=== PATIENT | female | born 1970 | race African-American/Black ===

== ENCOUNTER 2020-03-16 08:06 | Emergency (ER) | payer OTHER ==
[~2020-03-16] VITALS: Ht 175.3 cm; Wt 104.3 kg
[2020-03-16] MEDS ORDERED: PRINIVIL10 MG PO ×2 (08:38→11:55)
[2020-03-16] MEDS ORDERED: LOPRESSOR50 MG PO ×2 (08:38→11:55)
--- NOTE | 2020-03-16 09:17 | EKG ---
[facility] [place] [address] ELECTROCARDIOGRAM REPORT Name: ADRIANO MAZARIEGOS Room #: [facility]#: [id number] Admission: 03/16/20 Attend Phys: Discharge: Date of : 72 Report #: [id number] THIS REPORT FOR: cc: FAM - Family physician unknown FAM - Family physician unknown Rikki Keith MD [facility] ~ THIS REPORT FOR: //name// [facility] ED Test Date: 2020-03-16 Test Time: 09:02:19 Pat Name: ADRIANO MAZARIEGOS Department: Room: Gender: F Head Of Product: : 1970 Requested By: Jani Villavicencio Order Number: [id number] MD: Rikki Keith Measurements Intervals [place] Rate: 97 P: 64 LA: 154 QRS: 52 QRSD: 91 T: 50 QT: 366 QTc: 465 Interpretive Statements Sinus rhythm Normal tracing No previous ECG available for comparison Electronically Signed On 03-16-2020 9:16:49 CDT by Rikki Keith [email or web address] <ELECTRONICALLY SIGNED> By: Rikki Keith MD, FAC 03/16/20 0916 1 09 Rikki Keith MD, FACC /EPI
[2020-03-16 10:23] LABS: BASOPHILS 0.9 % (0.0-2.0); EOSINOPHILS 3.4 % (0.0-3.0); HEMATOCRIT 35.5 % (37.0-47.0); HEMOGLOBIN 11.7 gm/dL (12.0-15.0); LYMPHOCYTES 23.8 % (24.0-44.0); MCH 29.4 pg (26.0-34.0); MONOCYTES 10.7 % (1.0-8.0); PLATELET COUNT 334 thou/uL (150-400); POLYS 61.2 % (36.0-66.0); RBC 3.98 mil/uL (4.20-5.00); RDW 16.8 % (10.5-14.5); WBC 4.8 thou/uL (4.0-11.0)
[2020-03-16 10:25] LABS: ANION GAP 7 mmol/L (7-16); BUN 13 mg/dL (7-18); CALCIUM 9.1 mg/dL (8.5-10.1); CHLORIDE 102 mmol/L (98-107); CO2 28 mmol/L (21-32); CREATININE 1.4 mg/dL (0.6-1.0); GLUCOSE 85 mg/dL (74-106); POTASSIUM 3.5 mmol/L (3.5-5.1); SODIUM 137 mmol/L (136-145)
[2020-03-16 10:34] LABS: TROPONIN-I <0.06 ng/mL (<0.06)
[2020-03-16 11:39] VITALS: BP 192/110
== END 2020-03-16 11:40 | disposition home or self-care (01) ==
LOC: ER 08:06
PROVIDERS: Emergency Medicine
DX: R06.00 Dyspnea, unspecified (principal); Z20.828 Contact with and (suspected) exposure to other viral communicable diseases; H57.89 Other specified disorders of eye and adnexa; R60.0 Localized edema; R06.2 Wheezing; R05 Cough; R07.9 Chest pain, unspecified; Z86.73 Personal history of transient ischemic attack (TIA), and cerebral infarction without residual deficits; Z79.899 Other long term (current) drug therapy

== ENCOUNTER 2020-08-02 15:53 | Inpatient (IN) | payer OTHER ==
[~2020-08-02] VITALS: Ht 172.7 cm; Wt 121.6 kg
[~2020-08-02 15:53] MED LIST: LOPRESSOR50 MG PO; PRINIVIL10 MG PO
[2020-08-02 19:08] LABS: URINE BILIRUBIN NEGATIVE (Negative); URINE BLOOD 2+ (Negative); URINE CLARITY CLEAR; URINE COLOR YELLOW; URINE GLUCOSE-RANDOM* NEGATIVE (Negative); URINE KETONES NEGATIVE (Negative); URINE LEUKOCYTES-REFLEX NEGATIVE (Negative); URINE NITRITE-REFLEX NEGATIVE (Negative); URINE PROTEIN (DIPSTICK) TRACE (Negative); URINE SPECIFIC GRAVITY 1.015 (1.005-1.035); URINE UROBILINOGEN 0.2 E.U./dl (0.2-1.0)
[2020-08-02 19:11] LABS: CALCIUM 9.3 mg/dL (8.5-10.1); CREATININE 1.4 mg/dL (0.6-1.0)
[2020-08-02 19:12] LABS: POTASSIUM 4.4 mmol/L (3.5-5.1)
[2020-08-02 19:19] LABS: URINE RBC 3-10 Few /HPF (0-2)
[2020-08-02 19:20] LABS: BACTERIA-REFLEX None Seen /HPF (None Seen); CASTS None Seen /LPF (None Seen); CRYSTALS None Seen /LPF (None Seen); SQUAMOUS 0-3 Few /LPF (0-3); URINE WBC-REFLEX None Seen /HPF (0-5)
[2020-08-02 19:20] LABS: MAGNESIUM 1.9 mg/dL (1.8-2.4); TROPONIN-I 0.09 ng/mL (<0.06)
[2020-08-02 20:03] LABS: HEMATOCRIT 40.9 % (37.0-47.0); HEMOGLOBIN 13.1 gm/dL (12.0-15.0); MCH 28.7 pg (26.0-34.0); MCV 89.6 fL (80.0-100.0); RBC 4.57 mil/uL (4.20-5.00); RDW 17.3 % (10.5-14.5); WBC 6.2 thou/uL (4.0-11.0)
[2020-08-02 22:21] VITALS: BP 207/125
[2020-08-02 22:52] VITALS: BP 198/97
[2020-08-02 23:00] VITALS: BP 175/105
[2020-08-03] VITALS (12 sets, daily range): BP systolic 138–169; BP diastolic 70–101
[2020-08-03 04:05] LABS: HEMATOCRIT 38.4 % (37.0-47.0); HEMOGLOBIN 12.6 gm/dL (12.0-15.0); MCH 29.3 pg (26.0-34.0); MCHC 32.9 g/dL (28.0-37.0); MCV 89.3 fL (80.0-100.0); RBC 4.3 mil/uL (4.20-5.00); RDW 17.4 % (10.5-14.5); WBC 7.2 thou/uL (4.0-11.0)
[2020-08-03 04:21] LABS: ANION GAP 13 mmol/L (7-16); BUN 16 mg/dL (7-18); CALCIUM 9.4 mg/dL (8.5-10.1); CHLORIDE 102 mmol/L (98-107); CHOLESTEROL 236 mg/dL (<200); CO2 24 mmol/L (21-32); CREATININE 1.5 mg/dL (0.6-1.0); GLUCOSE 115 mg/dL (74-106); HDL CHOLESTEROL 74 mg/dL (>40); LDL CHOLESTEROL 150 mg/dL (<100); MAGNESIUM 1.9 mg/dL (1.8-2.4); SODIUM 139 mmol/L (136-145); TC:HDL 3.2 Ratio (Not establshd); TRIGLYCERIDE 64 mg/dL (<150); TROPONIN-I 0.06 ng/mL (<0.06); VLDL 13 mg/dL (<40)
[2020-08-03 04:22] LABS: POTASSIUM 3.2 mmol/L (3.5-5.1); SERUM ASSESSMENT Clear
--- NOTE | 2020-08-03 07:36 | EKG ---
[facility] [place] [address] ELECTROCARDIOGRAM REPORT Name: ADRIANO MAZARIEGOS Room #: 208-P ADM IN M.R.#: [id number] Admission: 08/02/20 Attend Phys: Eliazar Shelton MD Discharge: Date of : 72 Report #: [id number] THIS REPORT FOR: cc: FAM - Family physician unknown FAM - Family physician unknown Fernie Houston MD [facility] ~ THIS REPORT FOR: //name// [facility] ED Test Date: 2020-08-02 Test Time: 18:34:23 Pat Name: ADRIANO MAZARIEGOS Department: Room: 208 Gender: F Park Recreation Manager: YUMIKO : 1970 Requested By: Harmeet Walter Order Number: [id number] MD: Fernie Houston Measurements Intervals [place] Rate: 93 P: 51 FL: 164 QRS: 35 QRSD: 92 T: 34 QT: 382 QTc: 476 Interpretive Statements Sinus rhythm Left atrial enlargement Left ventricular hypertrophy Compared to ECG 03/16/2020 09:02:19 Atrial abnormality now present Left ventricular hypertrophy now present Electronically Signed On 08-03-2020 7:35:59 WREATH INSPECTOR by Fernie Houston [email or web address] <ELECTRONICALLY SIGNED> By: Fernie Houston MD, FACC 08/03/20 0735 1834 183 Fernie Houston MD, [facility] /EPI
--- NOTE | 2020-08-03 10:21 | 2DMMODE ---
[facility] [place] [address] 2 D/M-MODE ECHOCARDIOGRAM Name: ADRIANO MAZARIEGOS Room #: 208-P ADM IN M.R.#: [id number] Admission: 08/02/20 Attend Phys: Eliazar Shelton MD Discharge: Date of : 72 Report #: [id number] THIS REPORT FOR: cc: FAM - Family physician unknown FAM - Family physician unknown Rikki Keith MD [facility] ~ APPROVED REPORT Study performed: 08/03/2020 08:58:12 EXAM: Comprehensive 2D, Doppler, and color-flow Echocardiogram Patient Location: Bedside Room #: 208 Status: routine BSA: 2.13 HR: 105 bpm BP: 149/88 mmHg Rhythm: NSR/tachy Other Information Study Quality: Adequate Technically limited study due to uncooperative patient. Indications HTN. Elevated troponin & elevated BNP. Hx: CVA, HTN 2D Dimensions RVDd: 37.79 mm IVSd: 9.68 (7-11mm) LVOT Diam: 22.45 (18-24mm) LVDd: 53.93 mm PWd: 9.65 (7-11mm) Ascending Ao: 31.79 (22-36mm) LVDs: 32.72 (25-40mm) Aortic Root: 31.20 mm Volumes Left Atrial Volume (Systole) Single Plane 4CH: 63.97 mL Single Plane 2CH: 74.24 mL LA ESV Index: 35.00 mL/m2 Aortic Valve AoV Peak Dennis.: 2.12 m/s AO Peak Gr.: 16.17 mmHg LVOT Max P.84 mmHg [facility] [address] [place] [address] 2 D/M-MODE ECHOCARDIOGRAM Name: ADRIANO MAZARIEGOS Room #: 208-P [facility]#: [id number] Admission: 08/02/20 Attend Phys: Eliazar Shelton MD Discharge: Date of : 72 Report #: [id number] Mean Gr.: 10.12 mmHg AO V2 Mean: 1.48 m/s LVOT Max V: 1.79 m/s AO V2 VTI: 30.32 cm SUNSHINE Vmax: 3.35 cm2 Mitral Valve E/A Ratio: 0.9 MV Decel. Time: 101.04 ms MV E Max Dennis.: 0.86 m/s MV A Dennis.: 0.96 m/s MV PHT: 29.30 ms IVRT: 96.89 ms Pulmonary Valve PV Peak Dennis.: 1.28 m/s PV Peak Gr.: 6.56 mmHg Pulmonary Vein P Vein S: 0.63 m/s P Vein A: 0.19 m/s P Vein D: 0.36 m/s P Vein A Dur.: 100.3 msec P Vein S/D Ratio: 1.75 Tricuspid Valve TR Peak Dennis.: 2.72 m/s TR Peak Gr.: 29.52 mmHg Left Ventricle The left ventricle is normal size. There is normal LV segmental wall motion. Mild concentric left ventricular hypertrophy. The left ventricular systolic function is normal. LVEF is 65%. Mild diastolic dysfunction Right Ventricle The right ventricle is normal size. The right ventricular systolic function is normal. Atria Left atrium is at the upper limits of normal. Right atrium is at the upper limits of normal. Aortic Valve The aortic valve is normal in structure. No aortic regurgitation is present. There is no aortic valvular stenosis. Mitral Valve The mitral valve is normal in structure. Mild mitral regurgitation. No evidence of mitral valve stenosis. [facility] [address] [address] 2 D/M-MODE ECHOCARDIOGRAM Name: ADRIANO MAZARIEGOS Room #: 208-P [facility] IN .R.#: [id number] Admission: 08/02/20 Attend Phys: Eliazar Shelton MD Discharge: Date of : 72 Report #: [id number] Tricuspid Valve The tricuspid valve is normal in structure. Trace to mild tricuspid regurgitation. Estimated PAP 35-40mmHg Pulmonic Valve Pulmonic valve is not well visualized. There is no pulmonic valvular regurgitation. Great Vessels The aortic root is normal in size. The ascending aorta is normal in size. IVC is not visualized. Pericardium There is no pericardial effusion. <Conclusion> The left ventricular systolic function is normal. There is normal LV segmental wall motion. Mild concentric left ventricular hypertrophy. LVEF is 65%. Mild diastolic dysfunction The aortic valve is normal in structure. No aortic regurgitation or stenosis The mitral valve is normal in structure. Mild mitral regurgitation. Trace to mild tricuspid regurgitation. Estimated pulmonary artery pressure of 35-40mmHg There is no pericardial effusion. <ELECTRONICALLY SIGNED> By: Rikki Keith MD, FACC 08/03/20 1021 1021 1021 Rikki Keith MD, FACC /INF
--- NOTE | 2020-08-03 13:11 | NUR ---
RD consult received for pt with difficulty eating. hx CVA, aphasia, dysphagia. ST has assessed and recommending regular diet with no straws and will continue to follow ability to tolerate that diet order. Pt with cellulitis, weeping lower extremity 3+edema. Wt gain of 38 lb from March admission. Hyperlipidemia. Has appropriate heart healthy restriction ordered. Low nutrition risk with appropriate nutrition interventions in place.
--- NOTE | 2020-08-03 20:41 | NUR ---
ASSUMED CARE PT SHIFT CHANGE. ASSESSMENTS CHARTED.MEDS GIVEN PER NOV. PT ALERT AND ORIENTED. BP MONITORED FREQUENTLY, CARDENE GTT CONTINUES. TITRATED PER ORDERS. C/O LEG PAIN PO PAIN MEDS GIVEN WITH RELIEF. O2 SATS WNL ON RA. UOP ADEQUATE. POTASSIUM REPLACED THIS SHIFT PER ORDERS .FAMILY UPDATED ON POC. PT COVID RETEST PER ORDERS. SEE RESULTS. PT LULYLTY SITTING UP IN BED. KIA COUGHLIN. CONTINUING TO MONITOR FOLLOW POC. REPORT PASSED ONTO NOC RN.
[2020-08-04] VITALS (14 sets, daily range): BP systolic 119–169; BP diastolic 60–107
[2020-08-04 01:06] LABS: GLYCOHEMOGLOBIN (HGB A1C) 5.1 % (4.8-5.6)
--- NOTE | 2020-08-04 05:18 | NUR ---
PATIENT SLEPT PART OF THE NIGHT. FALL PRECAUTIONS IN PLACE. A&OX4. MEDICATIONS GIVEN PER MAR. CARDENE GTT REMAINS, TITRATING PER ORDERS. VOIDS PER WERNER. UP X1 ASSIST. COMPLAINTS OF PAIN IN LEGS AROUND 0400 AFTER AWAKENING, PAIN MEDICATION GIVEN PER MAR, WITH NOTED RELIEF. CONTINUING TO ASSESS ACCORDING TO POC.
[2020-08-04 09:06] LABS: HEMATOCRIT 37.3 % (37.0-47.0); MCH 28.8 pg (26.0-34.0); MCHC 32.3 g/dL (28.0-37.0); MCV 89.2 fL (80.0-100.0); RBC 4.18 mil/uL (4.20-5.00); RDW 17.4 % (10.5-14.5); WBC 5.4 thou/uL (4.0-11.0)
[2020-08-04 09:36] LABS: CALCIUM 9.1 mg/dL (8.5-10.1); CREATININE 1.8 mg/dL (0.6-1.0); MAGNESIUM 1.9 mg/dL (1.8-2.4); POTASSIUM 3.5 mmol/L (3.5-5.1)
--- NOTE | 2020-08-04 14:33 | NUR ---
ASSESSMENT: CM REVIEWED CHART AND MET WITH PT. PT IS ADMITTED DUE TO HYPERTENSIVE URGENCY. PT ALSO HAS A HX OF CVA AND HAS RIGHT SIDED WEAKNESS, APHASIA, DYSPHAGIA. PT LIVES IN A HOUSE DUPLEX WITH HER SON CHOCO. CM SPOKE WITH CHOCO WHO REPORTS EITHER HE OR HIS SISTER NORMALLY TRIES TO BE HOME TO LOOK AFTER THEIR MOTHER. PT IS NORMALLY INDEPENDENT WITH ADLS AND AMBULATION. PT HAS ABOUT 6 STEPS TO ENTER THROUGH THE GARAGE AND ABOUT ANOTHER 6 WITH HANDRAILS TO HER BEDROOM. PT IS INDEPENDENT WITH ADLS AND AMBULATION PER SON. [facility] HAS BEEN CONSULTED AND EVALUATED PT AND STATES THEY CAN ACCEPT PT TO REHAB PENDING AUTH. ELIJAH ATTEMPTED TO DISCUSS WITH PTS SON WHO STATED HE PREFERRED SHE GET THERAPY AT HOME. CM DISCUSSED DUE TO PATIENTS MEDICAID SHE CANNOT RECEIVED THERAPY SERVICES IN THE HOME MEDICAID DOES NOT COVER THAT. ELIJAH SPOKE WITH PROFESSIONAL POKER PLAYER FROM WHO REPORTS SHE IS ATTEMPTING TO DISCUSS WITH SON. CM WILL CONTINUE TO FOLLOW TO ASSIST NEEDED. PTS BP IS STILL NEEDING TO BE STABILIZED.
--- NOTE | 2020-08-04 17:32 | NUR ---
AAOX4. CALM. MEAL TRAYS SET UP AND SHE FEEDS HERSELF. BECOMES TEARFUL WORKING WITH PT AND OT. MEDICATED FOR PAIN ALLOWED. SR PER TELE. MARGUERITE PEREIRA DISCONTINUED D/T MODERATED BP. FALL PRECAUTIONS IN PLACE. WILL CONTINUE TO FOLLOW CLOSELY.
--- NOTE | 2020-08-05 04:29 | NUR ---
Assumed pt care at 1900. Pt is alert and oriented. No sign of distress noted in pt. Denies pain. Fall precaution in place. Pt is sitting in chair. Assessment completed and documented. Scheduled meds administered to pt. Tolerated PO intake. No acute events overnight. Continue to monitor. No further needs at this time.
[2020-08-05 04:47] VITALS: BP 141/88
[2020-08-05 08:10] VITALS: BP 150/97
[2020-08-05 11:29] VITALS: BP 130/83
[2020-08-05] MEDS ORDERED: TRAMADOL 50 MG50 MG PO (14:33)
[2020-08-05] MEDS ORDERED: PEPCID20 MG PO (14:34)
[2020-08-05] MEDS ORDERED: PRINIVIL10 MG PO (14:34)
[2020-08-05] MEDS ORDERED: TYLENOL325 MG PO (14:34)
[2020-08-05] MEDS ORDERED: NORVASC10 MG PO (14:34)
[2020-08-05] MEDS ORDERED: LIPITOR 20 MG T20 M1 PO (14:34)
[2020-08-05] MEDS ORDERED: HEPARIN SO5000 UNIT/ SUBQ (14:52)
[2020-08-05 15:11] VITALS: BP 157/86
[2020-08-05 19:20] VITALS: BP 166/93
--- NOTE | 2020-08-05 19:54 | NUR ---
PT A&OX3, VSS, PAIN IN BLE. PAIN MEDS GIVEN, MEDS GIVEN ORDERED. BLE EDEMA LEGS ELEVATED. IV INFILTRATED. WERNER PATENT. PATIENT DUE TO DISCHARGE TO REHAB 5N TODAY. UNABLE TO GET PATIENT TO REHAB THIS AM SHIFT. ONCOMING NURSE AWARE. TELE. NO SIGNS OF DISTRESS. WILL CONTIUE TO MONITOR.
--- NOTE | 2020-08-05 21:45 | NUR ---
Assumed pt crae at 1900. A/OX3,VSS. Denies pain on assessment. Pt's max assist with cares. Sitting on recliner and apparently sleeps on recliner. Edema 3+ noted on BLE encouraged to elevate but hesitant to. Has a gilliland to DD with yellow urine w/sediment noted;informed gilliland is supposed to be discontinued per protocol, pt very tearful about it and refused. Report called to 5N RN. Discharged with all personal belongs via recliner.
== END 2020-08-05 21:40 | disposition short-term general hospital (02) | DRG 305 ==
LOC: ER 15:53 → EROBS 21:23 → 2N 22:36
PROVIDERS: Emergency Medicine; Internal Medicine; Nurse Practitioner Family; ADMIT Hospitalist; ATTEND Hospitalist
DX: I16.1 Hypertensive emergency (principal); I69.351 Hemiplegia and hemiparesis following cerebral infarction affecting right dominant side; N17.9 Acute kidney failure, unspecified; E87.6 Hypokalemia; E78.5 Hyperlipidemia, unspecified; N18.9 Chronic kidney disease, unspecified; Z79.899 Other long term (current) drug therapy; I12.9 Hypertensive chronic kidney disease with stage 1 through stage 4 chronic kidney disease, or unspecified chronic kidney disease
CPT/HCPCS: 10081

== ENCOUNTER 2020-08-20 18:42 | Inpatient (IN) | payer OTHER ==
[~2020-08-20] VITALS: Ht 170.2 cm; Wt 106.6 kg
[~2020-08-20 18:42] MED LIST changes: +HEPARIN SO5000 UNIT/ SUBQ; +LIPITOR 20 MG T20 M1 PO; +NORVASC10 MG PO; +PEPCID20 MG PO; +TRAMADOL 50 MG50 MG PO; +TYLENOL325 MG PO
[2020-08-21] MEDS ORDERED: ASA81BEC PO (00:41)
[2020-08-21] MEDS ORDERED: CALCITRIOL0.25 MCG PO (00:42)
[2020-08-21] MEDS ORDERED: DEPAKOTE 250MG250 MG PO (00:43)
[2020-08-21] MEDS ORDERED: DULCOLAX STOOL100 M1 PO (00:47)
[2020-08-21] MEDS ORDERED: DORYX MPC120 MG PO (00:50)
[2020-08-21] MEDS ORDERED: IRON325 M1 PO (00:52)
[2020-08-21] MEDS ORDERED: FUROSEMIDE 40 M40 MG PO (00:53)
[2020-08-21] MEDS ORDERED: DECONEX DMX 171 EACH PO (00:55)
[2020-08-21] MEDS ORDERED: LIDODERM1 EACH (00:57)
[2020-08-21] MEDS ORDERED: ATIVAN1 M1 PO (00:58)
[2020-08-21] MEDS ORDERED: OLANZAPINE2.5 MG PO (01:02)
[2020-08-21] MEDS ORDERED: ONDANSETRON HCL4 M3 PO (01:04)
[2020-08-21] MEDS ORDERED: MIRALAX119 GM PO (01:04)
[2020-08-21] MEDS ORDERED: DERMACERIN CRE454 GM TOP (01:14)
[2020-08-21] MEDS ORDERED: NYSTATIN 100,0015 G1 TOP (01:15)
[2020-08-21 02:49] VITALS: BP 156/102
--- NOTE | 2020-08-21 06:07 | NUR ---
PT WAS TRANSFERRED FROM DUE TO POSITIVE COVID PCR. ADMISSION COMPLETED, CARE PLAN IN PLACE, INTERVENTIONS UPDATED. PT HAD COMPLAINT OF PAIN, RECEIVED ORDERS TO RESTART PREVIOUS PAIN MEDICATION. PT ARRIVED TO UNIT WITH FEVER OF 101.6. TYLENOL GIVEN, TEMP RECHECKED AND IT WAS 99.7. GAVE TYLENOL 1 MORE TIME TO LOWER TEMP AT 0400 WHICH WAS 99.7 AX. PT MOODS FLUCTUATE FROM HAPPY TO CRYING STATES.
[2020-08-21 10:27] LABS: ALBUMIN 3.3 g/dL (3.4-5.0); CALCIUM 9.2 mg/dL (8.5-10.1); CREATININE 1.6 mg/dL (0.6-1.0); MAGNESIUM 2.1 mg/dL (1.8-2.4); POTASSIUM 4.1 mmol/L (3.5-5.1); TOTAL BILIRUBIN 0.2 mg/dL (0.2-1.0); TOTAL PROTEIN 7.6 g/dL (6.4-8.2)
[2020-08-21 14:05] LABS: HEMATOCRIT 41.7 % (37.0-47.0); HEMOGLOBIN 13.6 gm/dL (12.0-15.0); MCHC 32.5 g/dL (28.0-37.0); MCV 89.3 fL (80.0-100.0); RBC 4.67 mil/uL (4.20-5.00); RDW 17.3 % (10.5-14.5)
[2020-08-21 15:02] LABS: ABSOLUTE NEUTROPHILS 0.9 thou/uL (1.4-8.2); ANISOCYTOSIS 1+
[2020-08-21 15:03] LABS: LARGE PLATELETS OCCASIONAL
--- NOTE | 2020-08-21 15:16 | NUR ---
INITIAL ASSESSMENT: SW reviewed chart and spoke with nursing and attending physician. Pt was admitted to 3W from N. Placed in Enhanced Isolation due to positive COVID-19 test. Pt febrile and not requiring O2. Pt is on IV abx and IV steroids. ID consulted. Pt with hx of CVA with right sided weakness. Pt lives at home with her son. 6 steps to enter the home and 6 steps inside. Pt has good family support. No weekend discharge planned. RODERICK is following to assist as needed with discharge planning.
[2020-08-21 15:22] LABS: PLATELET COUNT 145 thou/uL (150-400)
[2020-08-21 15:36] VITALS: BP 151/89
--- NOTE | 2020-08-21 19:28 | NUR ---
PATIENT FAMILY ARE QUITE RUDE TO NURSES AND STAF WHEN THEY CALLED. SON CALLED AND TOLD NURSE THEY WILL SUPRIYA THE HOSPITAL FOR " GIVING COVID19 TO THEIR MOTHER". SON WILL NOT LISTEN TO ANY EXPLAINATION FROM NURSE. DEMANDS NURSE STAY ON THE PHONE AND TALK TO HIM LONG HE WANTS DESPITE THE FACT THAT NURSE HAS ALREADY SPENT NEARLY AN HOUR ON THE PHONE LISTENING TO HIS TIRADE. AT THIS TIME, NURSE FIRMLY TOLD FAMILY MEMBER HE HAS TO GO TAKE CARE OF PATIENTS WHO HAVE BEEN CALLING FOR HELP. FAMILY MEMBERS (SON AND DAUGHTER) BOTH STARTED SCREAMING WHEN NURSE HUNG UP THE PHONE.
[2020-08-21 20:11] VITALS: BP 118/63
--- NOTE | 2020-08-22 01:13 | NUR ---
PT RESTING IN BED, EYES CLOSED. PT NOT VERBALIZNG TO STAFF. PT DOES SHAKE HEAD YES OR NO TO DIRECT QUESTIONS. LUNGS DIMINSIHED, STEVE SPLINT ON. EXT WERNER CATH. PT COMPLIANT WITH MEDS AND HS SNACK.
[2020-08-22 04:35] LABS: FIBRINOGEN 227.1 mg/dL (210-360); INR 1.1; PROTIME 11.1 Seconds (9.3-11.4)
[2020-08-22 04:45] LABS: MCV 90.5 fL (80.0-100.0); PLATELET COUNT 145 thou/uL (150-400)
[2020-08-22 04:47] LABS: HEMATOCRIT 39.8 % (37.0-47.0); HEMOGLOBIN 12.6 gm/dL (12.0-15.0); MCH 28.6 pg (26.0-34.0); MCHC 31.7 g/dL (28.0-37.0); RDW 17.7 % (10.5-14.5)
[2020-08-22 04:54] LABS: CALCIUM 8.7 mg/dL (8.5-10.1); CREATININE 1.9 mg/dL (0.6-1.0); POTASSIUM 4.3 mmol/L (3.5-5.1); TOTAL BILIRUBIN 0.2 mg/dL (0.2-1.0); TOTAL PROTEIN 7.2 g/dL (6.4-8.2)
[2020-08-22 05:08] LABS: WBC 1.6 thou/uL (4.0-11.0)
[2020-08-22 05:22] VITALS: BP 133/78
[2020-08-22 07:16] VITALS: BP 119/74
[2020-08-22 10:20] LABS: ABSOLUTE NEUTROPHILS 0.9 thou/uL (1.4-8.2); ANISOCYTOSIS 1+
[2020-08-22 10:22] LABS: LARGE PLATELETS FEW
[2020-08-22 11:08] VITALS: BP 125/76
[2020-08-22 15:20] VITALS: BP 119/70
[2020-08-22 19:39] VITALS: BP 124/81
[2020-08-23 05:00] LABS: HEMATOCRIT 38.6 % (37.0-47.0); HEMOGLOBIN 12.2 gm/dL (12.0-15.0); MCH 28.6 pg (26.0-34.0); MCHC 31.6 g/dL (28.0-37.0); MCV 90.7 fL (80.0-100.0); RBC 4.25 mil/uL (4.20-5.00); RDW 17.7 % (10.5-14.5)
[2020-08-23 05:06] LABS: WBC 6.2 thou/uL (4.0-11.0)
[2020-08-23 05:11] LABS: CALCIUM 8.9 mg/dL (8.5-10.1); CREATININE 1.6 mg/dL (0.6-1.0); POTASSIUM 4.1 mmol/L (3.5-5.1)
[2020-08-23 05:40] VITALS: BP 138/83
[2020-08-23 07:55] VITALS: BP 130/84
--- NOTE | 2020-08-23 08:37 | NUR ---
PT LYING IN BED. DENIES PAIN. RESTING COMFORTABLY. NO NEEDS VOICED. CALL LIGHT WITHIN REACH. FREQUENT OBSERVATION.
[2020-08-23 11:57] VITALS: BP 124/69
[2020-08-23 16:05] VITALS: BP 134/75
--- NOTE | 2020-08-23 18:22 | NUR ---
ASSUMED PATIENT CARE AT 0700. ALERT TO SELF. DEPRESSED. VSS. ASSISTED PATIENT EATTING. AFEBRILE. SOLWKY TOWARDS POC GOALS.
[2020-08-23 20:22] VITALS: BP 139/86
[2020-08-24 04:40] VITALS: BP 182/126
--- NOTE | 2020-08-24 05:28 | NUR ---
VSS WERE STABLE UNTIL 0100 WHEN HR ELEVATED INTO 120 RANGE. CALLED [employer] DOCUMENT PREPARER AND RECEIVED ORDERS FOR 500ML NS BOLUS. RECHECK ON VITAL AFTER BOLUS BP 182/126 AND TEMP 100.5. CALLED [employer] DOCUMENT PREPARER BACK AND WAS TOLD TO GIVE AM DOSE OF AMLODIPINE. WILL RECHECK BP AND TEMP. POC WITH IVF AND IVPB ANTIBIOTICS.
[2020-08-24 05:46] LABS: HEMATOCRIT 38.2 % (37.0-47.0); HEMOGLOBIN 12.3 gm/dL (12.0-15.0); MCH 28.7 pg (26.0-34.0); MCHC 32.1 g/dL (28.0-37.0); MCV 89.2 fL (80.0-100.0); RBC 4.28 mil/uL (4.20-5.00); RDW 17.9 % (10.5-14.5); WBC 9.2 thou/uL (4.0-11.0)
[2020-08-24 06:00] LABS: CREATININE 1.7 mg/dL (0.6-1.0); POTASSIUM 4.2 mmol/L (3.5-5.1)
[2020-08-24 07:34] VITALS: BP 132/88
[2020-08-24 07:40] VITALS: BP 182/83
[2020-08-24 11:09] VITALS: BP 135/86
[2020-08-24 15:20] VITALS: BP 146/95
--- NOTE | 2020-08-24 16:19 | NUR ---
RODERICK reviewed chart and spoke with nursing and attending physician. Pt remains in Enhanced Isolation due to COVID-19. Pt febrile yesterday and is off O2. Pt is on IV abx and IV steroids. Pt has completed course of Ivermectin. Discharge home is anticipated for Monday, 08/26, as previously determine while on 5N. RODERICK spoke with pt's son, Glendy, via phone. Introduced role of SW. Pt's son states that he does not think pt is ready to discharge home and they are concerned with her going home still testing positive. Pt had repeat test on 08/23 and results were positive. RODERICK explained that pt can discharge home when medically stable and will be provided with education on recommendation for isolation precautions. Pt's family states that pt's dtr and other family members have asthma and they are concerned with them getting sick. Pt's family have all tested negative for COVID. RODERICK discussed RN services with pt's family, who are agreeable with HH referral. Options provided. No preference voiced. RODERICK faxed referral to [facility] for review. Notified intake of new referral. RODERICK provided contact info for Glendy to attending physician to follow up and discuss discharge with pt's family. RODERICK is following to assist as needed with discharge planning.
[2020-08-24 19:41] VITALS: BP 152/103
[2020-08-25] VITALS (7 sets, daily range): BP systolic 146–174; BP diastolic 95–111
--- NOTE | 2020-08-25 11:07 | NUR ---
RODERICK reviewed chart and spoke with nursing and attending physician. Pt remains in Enhanced Isolation due to COVID-19. Pt is afebrile and not requiring O2. PT is on IV abx and IV steroids. Discharge home with HH is anticipated for tomorrow. RODERICK received voice message from Samantha at [facility] last evening stating they were able to accept pt on service, but they needed a physician to follow for hH orders. RODERICK received call from Samantha this morning stating they are not able to accept Medicaid pts at this time. Attending physician is willing to follow for HH orders. program planner to send referral to alternate HH agencies. Attending physician to contact pt's family today to discuss discharge. RODERICK is following to assist as needed with discharge planning.
--- NOTE | 2020-08-25 12:57 | NUR ---
[facility]ED REFERR[facility] SPOKE WITH SHAYY IN ADM THEY ARE AT CAPACITY WITH COVID POSITIVE PT'S. FA[facility]ED REFERR[facility] TO [facility] SPOKE WITH YANCI IN INTAKE THEY CAN ACCEPT AT DISCHARGE.
--- NOTE | 2020-08-25 16:17 | NUR ---
pt care assumed at 0700, alert to self and place. able to follow commands and have simple conversation. denies any pain, on room air, no signs of distress noted. repositioned every 2 hours. incontinent and changed as needed. fall precaution in place. pt progressing towards care
[2020-08-26 02:11] VITALS: BP 144/100
[2020-08-26 06:14] LABS: HEMATOCRIT 36.8 % (37.0-47.0); HEMOGLOBIN 11.9 gm/dL (12.0-15.0); MCH 28.7 pg (26.0-34.0); MCHC 32.5 g/dL (28.0-37.0); MCV 88.4 fL (80.0-100.0); RBC 4.16 mil/uL (4.20-5.00); RDW 17.5 % (10.5-14.5); WBC 7.2 thou/uL (4.0-11.0)
[2020-08-26 06:29] LABS: CALCIUM 8.8 mg/dL (8.5-10.1); CREATININE 1.5 mg/dL (0.6-1.0); POTASSIUM 3.8 mmol/L (3.5-5.1)
[2020-08-26 07:16] VITALS: BP 156/106
[2020-08-26 11:18] VITALS: BP 146/90
--- NOTE | 2020-08-26 13:34 | NUR ---
FAXED REFERRAL TO [facility] SPOKE WITH GHASSAN IN INTAKE THEY ARE AT CAPACITY.
[2020-08-26 15:12] VITALS: BP 133/90
--- NOTE | 2020-08-26 15:43 | NUR ---
RODERICK reviewed chart and spoke with nursing and attending physician. Pt remains in Enhanced Isolation due to COVID-19. Pt is afebrile and not requiring O2. Pt is on IV steroids. Attending physician spoke with pt's family today to discuss discharge. Pt's family are agreeable with taking pt home once she is out of isolation per CDC guidelines. Discharge home is anticipated over the Holiday weekend. [facility] is not accepting [place] referrals at this time. RODERICK spoke with Leisa at [facility], who states they should be able to accept pt and start care on Monday/Monday. partner integration planner faxed referral to [facility] for review. RODERICK spoke with pt's son, Glendy, via phone to provide update and confirm discharge plan. RODERICK is following to assist as needed with discharge planning.
--- NOTE | 2020-08-26 16:47 | NUR ---
FAXED REFERRAL TO [facility] SPOKE WITH GEOVANI IN INTAKE THEY ARE REVIEWING REFERRAL.
--- NOTE | 2020-08-26 18:43 | NUR ---
ASSUMED CARE OF PT AT 0700. BP REMAINS HIGH, PHYSICIAN AWARE - MEDS ADJUSTED - SHOWING IMPROVEMENT. REMAINS ON ROOM AIR. PAIN WELL CONTROLLED WITH MED REGIMEN. TURNED PRN. EATING APPROX HALF OF MEALS. ANTICIPATE D/C SOON. WCM.
[2020-08-26 19:38] VITALS: BP 150/103
[2020-08-27 03:53] VITALS: BP 135/90
--- NOTE | 2020-08-27 05:35 | NUR ---
PT PROGRESSING TOWARDS DC GOALS WITH ASSISTANCE OF PT. PT TAKES MEDS WITH SMALL SIPS OF WATER. MOOD TONIGHT WAS JOYOUS SHE WAS LAUGHING AND IN A GOOD MOOD, BUT SLEPT MOST OF SHIFT. VSS, NO FEVERS AND HR WERE BELOW 90'S.
[2020-08-27 07:44] VITALS: BP 150/107
[2020-08-27 10:14] LABS: HEMATOCRIT 43.7 % (37.0-47.0); HEMOGLOBIN 13.8 gm/dL (12.0-15.0); MCH 28.3 pg (26.0-34.0); MCHC 31.5 g/dL (28.0-37.0); MCV 89.8 fL (80.0-100.0); RBC 4.86 mil/uL (4.20-5.00); RDW 17.9 % (10.5-14.5); WBC 7.4 thou/uL (4.0-11.0)
[2020-08-27 10:27] LABS: CALCIUM 9.4 mg/dL (8.5-10.1); CREATININE 1.3 mg/dL (0.6-1.0); MAGNESIUM 2.1 mg/dL (1.8-2.4); POTASSIUM 3.9 mmol/L (3.5-5.1)
--- NOTE | 2020-08-27 11:36 | NUR ---
RODERICK reviewed chart and spoke with nursing and attending physician. Pt remains in Enhanced Isolation. Pt is afebrile and not requiring O2. Discharge home is anticipated over the holiday weekend. SW and business planner have tried multiple agencies, who are not able to accept pt due to not accepting [place], or not having staff, or due to pt being COVID positive. RODERICK contacted [facility], [facility], [facility] and [facility]. All who decline pt. RODERICK discussed with Leisa at [facility] again, who is declining referral. RODERICK updated Director of Case Mgmt. RODERICK is following to assist as needed with discharge planning.
[2020-08-27 15:09] VITALS: BP 151/98
--- NOTE | 2020-08-27 16:46 | NUR ---
CARE ASSUMED AT 0700, ALERT AND ORIENTED X2, FOLLOW COMMANDS. DENIES ANY PAIN, NAUSEA AND VOMITTING. PT IS ON ROOM AIR, NO SIGNS OF DISTRESS NOTED. PT IS PROGRESSING TOWARDS CARE, ANTICIPATING POSSIBLE D/TRACY A FEW DAYS. FALL PRECAUTIONS IN PLACE. WILL CONTINUE TO MONITOR.
[2020-08-27 20:09] VITALS: BP 147/89
[2020-08-28 04:05] VITALS: BP 144/86
[2020-08-28 06:21] LABS: HEMATOCRIT 38.4 % (37.0-47.0); HEMOGLOBIN 12.3 gm/dL (12.0-15.0); MCH 28.9 pg (26.0-34.0); MCHC 32.1 g/dL (28.0-37.0); MCV 89.9 fL (80.0-100.0); RBC 4.27 mil/uL (4.20-5.00); RDW 17.1 % (10.5-14.5)
[2020-08-28 06:50] LABS: CALCIUM 8.9 mg/dL (8.5-10.1); CREATININE 1.3 mg/dL (0.6-1.0); MAGNESIUM 2.2 mg/dL (1.8-2.4); POTASSIUM 4.2 mmol/L (3.5-5.1)
--- NOTE | 2020-08-28 07:30 | NUR ---
PT MOOD WAS GOOD UNTIL SHE SPOKE TO HER SON ON THE PHONE THIS MORNING. SHE WAS CRYING. WE TURNED THE FROWN UPSIDE DOWN WITH A VICKI SPIRIT AND SHE SNAPPED BACK WITH A HAIR CAP AND CANDY CANE. VSS, NO FEVERS. PT REQUESTED TO BE MOVED TO CHAIR AT 0500 WITH X2 ASSIST. PT ADVANCING TOWARDS DC GOALS. NO S/S OF COVID.
[2020-08-28 10:03] VITALS: BP 137/79
--- NOTE | 2020-08-28 10:46 | NUR ---
Received awake on bed. Due medications given as prescribed, able to swallow w/o difficulty. On room air. Vital signs stable. On telemetry; no complains and signs of chest pain, crushing sensation and heaviness. Assisted in ADLs, pt with recent stroke- R sided weakness. On mechanically altered diet- tolerating well; assisted and encouraged in eating and drinking. Incontinent of bowel and bladder, checked regularly and changed as needed. Maintained on isolation due to Covid. Falls bundle in place. With SL at L hand and L FA- intact and flushing well. No nausea, no vomiting and no abdominal pain noted. Complained of LE pain, due PRN pain meds given as prescribed. Sitting on the chair during shift changed, pt said she wanted to stay there for a while, checked frequently and asked if she wanted to be back on her bed. To continue monitoring patient.
[2020-08-28 14:58] VITALS: BP 135/87
[2020-08-28 16:30] VITALS: BP 127/86
[2020-08-28 20:25] VITALS: BP 162/112
[2020-08-29 03:53] VITALS: BP 144/89
[2020-08-29 05:39] LABS: HEMATOCRIT 39.7 % (37.0-47.0); HEMOGLOBIN 12.5 gm/dL (12.0-15.0); MCH 28.6 pg (26.0-34.0); MCHC 31.5 g/dL (28.0-37.0); MCV 90.7 fL (80.0-100.0); RBC 4.38 mil/uL (4.20-5.00); RDW 17.7 % (10.5-14.5); WBC 9.8 thou/uL (4.0-11.0)
[2020-08-29 05:55] LABS: CALCIUM 9.2 mg/dL (8.5-10.1); CREATININE 1.2 mg/dL (0.6-1.0); MAGNESIUM 2.3 mg/dL (1.8-2.4); POTASSIUM 4.4 mmol/L (3.5-5.1)
[2020-08-29 07:24] VITALS: BP 127/83
[2020-08-29 15:21] VITALS: BP 121/73
--- NOTE | 2020-08-29 18:36 | NUR ---
assumed care of pt at 0700. pt aox2 in no acute distress. complains of pain to LLE, finding relief with analgesics. good appetite. pleasant. emotionally labile. turned prn. ext cath in place. anticipate d/c tomorrow once patient can be taken out of isolation precautions per CDC guidelines. wcm.
[2020-08-29 19:37] VITALS: BP 125/80
[2020-08-30 03:27] VITALS: BP 138/94
--- NOTE | 2020-08-30 05:04 | NUR ---
PT MAKING PROGRESS TOWARDS GOALS. ON ROOM AIR THROUGHOUT THE NIGHT. NO SOA OR INCREASED WOB NOTED WITH MOVING IN BED. LUNGS DIMINISHED THROUGHOUT.
[2020-08-30 05:45] LABS: HEMATOCRIT 39.2 % (37.0-47.0); HEMOGLOBIN 12.6 gm/dL (12.0-15.0); MCH 28.9 pg (26.0-34.0); MCHC 32.2 g/dL (28.0-37.0); MCV 89.7 fL (80.0-100.0); RBC 4.37 mil/uL (4.20-5.00); RDW 17.7 % (10.5-14.5); WBC 7.4 thou/uL (4.0-11.0)
[2020-08-30 05:56] LABS: CREATININE 1.3 mg/dL (0.6-1.0); MAGNESIUM 2.1 mg/dL (1.8-2.4); POTASSIUM 4.6 mmol/L (3.5-5.1)
[2020-08-30] MEDS ORDERED: AMOX TR-K CLV1 EAC4 PO (07:34)
[2020-08-30] MEDS ORDERED: ZINC SULFATE 2220 MG PO (07:36)
[2020-08-30 07:48] VITALS: BP 146/96
[2020-08-30 08:03] VITALS: BP 145/80
== END 2020-08-30 10:00 | disposition home or self-care (01) | DRG 177 ==
LOC: 3W 18:42
PROVIDERS: Internal Medicine; Nurse Practitioner; Specialist; ADMIT Hospitalist; ATTEND Hospitalist
DX: U07.1 COVID-19 (principal); J12.89 Other viral pneumonia; N17.9 Acute kidney failure, unspecified; I69.351 Hemiplegia and hemiparesis following cerebral infarction affecting right dominant side; R13.10 Dysphagia, unspecified; J45.909 Unspecified asthma, uncomplicated; F41.1 Generalized anxiety disorder; F32.9 Major depressive disorder, single episode, unspecified; K59.00 Constipation, unspecified; N18.9 Chronic kidney disease, unspecified; R33.9 Retention of urine, unspecified; E55.9 Vitamin D deficiency, unspecified; I89.0 Lymphedema, not elsewhere classified; E53.8 Deficiency of other specified B group vitamins; D50.9 Iron deficiency anemia, unspecified; I12.9 Hypertensive chronic kidney disease with stage 1 through stage 4 chronic kidney disease, or unspecified chronic kidney disease; E66.9 Obesity, unspecified; D69.6 Thrombocytopenia, unspecified; I69.320 Aphasia following cerebral infarction; I69.391 Dysphagia following cerebral infarction; Z68.36 Body mass index [BMI] 36.0-36.9, adult
CPT/HCPCS: 10779; 10879

== ENCOUNTER 2021-09-27 13:01 | Inpatient (IN) | payer OTHER ==
[~2021-09-27] VITALS: Ht 170.2 cm; Wt 74.8 kg
[~2021-09-27 13:01] MED LIST changes: +AMOX TR-K CLV1 EAC4 PO; +ASA81BEC PO; +ATIVAN1 M1 PO; +CALCITRIOL0.25 MCG PO; +DECONEX DMX 171 EACH PO; +DEPAKOTE 250MG250 MG PO; +DERMACERIN CRE454 GM TOP; +DORYX MPC120 MG PO; +DULCOLAX STOOL100 M1 PO; +FUROSEMIDE 40 M40 MG PO; +IRON325 M1 PO; +LIDODERM1 EACH; +MIRALAX119 GM PO; +NYSTATIN 100,0015 G1 TOP; +OLANZAPINE2.5 MG PO; +ONDANSETRON HCL4 M3 PO; +ZINC SULFATE 2220 MG PO
[2021-09-27 13:07] VITALS: BP 168/125
[2021-09-27 13:47] LABS: HEMATOCRIT 40.7 % (37.0-47.0); HEMOGLOBIN 12.9 gm/dL (12.0-15.0); MCH 30.1 pg (26.0-34.0); MCHC 31.7 g/dL (28.0-37.0); MCV 95.1 fL (80.0-100.0); PLATELET COUNT 324 thou/uL (150-400); RBC 4.28 mil/uL (4.20-5.00); RDW 20.7 % (10.5-14.5); WBC 9.2 thou/uL (4.0-11.0)
[2021-09-27 14:07] LABS: APTT 26.2 Seconds (24.5-32.8); INR 1.13; PROTIME 12.2 Seconds (10.5-12.1)
[2021-09-27 14:11] LABS: URINE BLOOD TRACE (Negative); URINE CLARITY CLEAR; URINE COLOR YELLOW; URINE GLUCOSE-RANDOM* NEGATIVE (Negative); URINE KETONES TRACE (Negative); URINE LEUKOCYTES-REFLEX NEGATIVE (Negative); URINE NITRITE-REFLEX NEGATIVE (Negative); URINE PROTEIN (DIPSTICK) 2+ (Negative); URINE SPECIFIC GRAVITY >= 1.030 (1.005-1.035)
[2021-09-27 14:17] LABS: ICTOTEST (BILI CONFIRMATORY) Negative (Negative); URINE BILIRUBIN NEGATIVE (Negative)
[2021-09-27 14:18] LABS: ABSOLUTE NEUTROPHILS 7.3 thou/uL (1.4-8.2)
[2021-09-27 14:19] LABS: ANISOCYTOSIS 1+
[2021-09-27 14:28] LABS: BACTERIA-REFLEX 1-9 Few /HPF (None Seen); CRYSTALS None Seen /LPF (None Seen); HYALINE CASTS 0-3 Few /LPF (None Seen); SQUAMOUS 0-3 Few /LPF (0-3); URINE RBC 1-2 Rare /HPF (NONE SEEN); URINE WBC-REFLEX 0-5 Rare /HPF (0-5)
[2021-09-27 14:38] LABS: CALCIUM 9.3 mg/dL (8.5-10.1); CREATININE 1.7 mg/dL (0.6-1.0); POTASSIUM 3.9 mmol/L (3.5-5.1)
[2021-09-27 14:44] LABS: ALBUMIN 3.2 g/dL (3.4-5.0); TOTAL BILIRUBIN 0.7 mg/dL (0.2-1.0); TOTAL PROTEIN 7.8 g/dL (6.4-8.2)
--- NOTE | 2021-09-27 17:49 | NUR ---
PT HAS MANY WOUNDS TO GENITALIA AREA IN VARIOUS STATES OF HEALING
[2021-09-28] VITALS (8 sets, daily range): BP systolic 113–159; BP diastolic 52–120
--- NOTE | 2021-09-28 02:56 | NUR ---
PT ARRIVED TO THE UNIT AT AROUND 0130 HRS. HX OF CVA WITH APHASIA. MUMBLES NAME-HARD TO UNDERSTAND.AWAKE, ALERT WITH FLAT AFFECT.RIGHT SIDED WEAKNESS-CONRACTURES NOTED.ADMISSION COMPLETED FROM MEDICAL RECORDS INFO.PT HAS WERNER TO D/D WITH CLOUDY U/O.TACHYCARDIC. ON /NC. COVID ISOLATION.
[2021-09-28 06:24] LABS: ABSOLUTE NEUTROPHILS 7.1 thou/uL (1.4-8.2); BASOPHILS 0.6 % (0.0-2.0); EOSINOPHILS 0.8 % (0.0-3.0); HEMATOCRIT 36.3 % (37.0-47.0); HEMOGLOBIN 11.6 gm/dL (12.0-15.0); LYMPHOCYTES 13.7 % (24.0-44.0); MCH 30.1 pg (26.0-34.0); MCV 93.8 fL (80.0-100.0); MONOCYTES 11.1 % (1.0-8.0); POLYS 73.8 % (36.0-66.0); RBC 3.87 mil/uL (4.20-5.00); WBC 9.6 thou/uL (4.0-11.0)
[2021-09-28 06:33] LABS: PLATELET COUNT 239 thou/uL (150-400)
[2021-09-28 06:37] LABS: CALCIUM 8.9 mg/dL (8.5-10.1); CREATININE 1.5 mg/dL (0.6-1.0); MAGNESIUM 2.7 mg/dL (1.8-2.4); POTASSIUM 3.5 mmol/L (3.5-5.1)
--- NOTE | 2021-09-28 08:57 | NUR ---
SPOKE WITH PATIENTS SON, HE IS UNSURE OF THE MEDICATIONS THE PT IS RECEIVING, REPORTS HE IS THE CAREGIVER WHO ADMINISTERS MEDICATIONS TO PT. REPORTS HE THINKS SHE IS TAKING METOPROLOL, ASPRIN AND LISINIPRIL. THIS RN CALLED THE PHARMACY HE REPORTED PICKING UP THE MEDICATIONS FROM AND THEY STATED NOTHING HAS BEEN FILLED IN THE PATIENTS NAME SINCE JUNE 2021, AND THAT WAS METOPROLOL 50MG AND AMLODIPINE 5MG PHARMACY STATES PATIENT HAS TWO ACTIVE SCRIPTS FOR LISINIPRIL AND FUROSEMIDE THAT WERE NEVER PICKED UP, PHARMACY ALSO STATES IT APPEARS THERE WERE NO OTHER MEDICATIONS FILLED AT OTHER [facility].
--- NOTE | 2021-09-28 10:02 | EKG ---
[address] [place] [address] ELECTROCARDIOGRAM REPORT Name: ADRIANO MAZARIEGOS Room #: 459-P ADM IN M.R.#: [id number] Admission: 09/27/21 Attend Phys: Sergio Alexander MD Discharge: Date of : 72 Report #: [id number] [facility] ED Test Date: 2021-09-27 Test Time: 13:41:19 Pat Name: ADRIANO MAZARIEGOS Department: Room: [facility] Gender: F Chief Security And Safety Officer: NICHO : 1970 Requested By: Lala Farooq Order Number: [id number] MD: Rikki Keith Measurements Intervals [facility] Rate: 126 P: 58 KS: 131 QRS: 21 QRSD: 82 T: -20 QT: 305 QTc: 442 Interpretive Statements Sinus tachycardia Nonspecific ST and T wave abnormality Compared to ECG 08/02/2020 18:34:23 Nonspecific change in the ST and T wave segments Electronically Signed On 09-28-2021 7:48:46 RETIREMENT CONSULTANT by Rikki Keith [email or web address] <ELECTRONICALLY SIGNED> By: Rikki Keith MD, [facility] 09/28/21 0748 1341 1341 Rikki Keith MD, [facility] /EPI
--- NOTE | 2021-09-28 16:51 | NUR ---
PT ADMITTED RELATED TO HYPERNATERMIA, AMS, AND HYPERTENSIVE URGERNCY. CM REVIEWED CHART AND SPOKE WITH CARE TEAM. CM ATTEMTPED PT TP PT'S ROOM THIS AFTERNOON WITH NO ANSWER. CM CALLED PT'S SON CHOCO CAMPBELL . HE INDICATED THAT PT RESIDES IN A DUPLEX WITH HIM WITH 7 STEPS TO ENTER AND 7 STEPS TO PT'S BEDROOM. HE INDICATED THAT PT ISN'T ABLE TO NEGOTIATE STEPS. HE INDICATED THAT PT ISN'T ABLE TO TRANSFER SELF. HE STATED THE HE IS PT'S PAID HCBS CAREGIVER BUT THAT HE WORKS SO USUALLY HE'S WITH HER FROM 3-9 AND OVER NIGHT. PER RECORD PT HAD TESTED POSITIVE FOR COVID 09/21/21. SON DOESN'T KNOW PT'S PCP. SON INDICATED THAT PT STAYS IN HER ROOM AND THAT THEY USE BRIEFS AND CHANGE PT. HE INDICATED THAT PT HAS AN ELECTIC BED OF SORTS THAT HEAD AND FOOT GO UP AND DOWN. NO HOME OR OR RT SUPPLIES. CM EXPLAINED THAT SHOULD CARE TEAM INDICATED THAT PT WOULD BENEFIT FROM REHAB ACUTE AND NURSING WOULD BE ONLY OPTIONS AWAIABLE. HE STATED HE ANTICIPATED PT RETURNING HOME ONCE MEDICALLY STABLE. CM FOLLOWING REGARDING DC PLANNING.
--- NOTE | 2021-09-29 03:53 | NUR ---
PT ALERT AND RESPONSIVE. Q2 HR TURNS PROVIDED. BARRIER CREAM APPLIED TO BOTTOM.PT ON O2/2L/NC. SHE HAS BEEN SR ON TELEMTRY.CONTINUES ON IV FLUIDS.
[2021-09-29 04:17] VITALS: BP 130/100
[2021-09-29 06:34] LABS: BUN 48 mg/dL (7-18); CHLORIDE 110 mmol/L (98-107); CO2 20 mmol/L (21-32); CREATININE 0.9 mg/dL (0.6-1.0); DIRECT BILIRUBIN < 0.1 mg/dL (<0.1-0.2); GLUCOSE 138 mg/dL (74-106); SGOT 40 U/L (15-37); SGPT 23 U/L (30-65); TOTAL BILIRUBIN 0.4 mg/dL (0.2-1.0); TOTAL PROTEIN 7.4 g/dL (6.4-8.2)
[2021-09-29 06:35] LABS: ANION GAP 15 mmol/L (7-16); POTASSIUM 5.2 mmol/L (3.5-5.1); SODIUM 145 mmol/L (136-145)
--- NOTE | 2021-09-29 07:45 | HC ---
[facility] [place] [address] CONSULTATION Name: ADRIANO MAZARIEGOS Room #: 459-P ADM IN M.R.#: [id number] Admission: 09/27/21 Attend Phys: Sergio Alexander MD Discharge: Date of : 72 Report #: [id number] THIS REPORT FOR: cc: FAM - Family physician unknown FAM - Family physician unknown Taye Kenyon MD ~ DATE OF SERVICE: 09/28/2021 INFECTIOUS DISEASE CONSULTATION REASON FOR EVALUATION: COVID-19 infection. HISTORY OF PRESENT ILLNESS: Chart reviewed. The patient examined. This is a 51-year-old woman with known history of CVA left her with significant right-sided deficits as well as aphasia. She presented via ambulance to the Emergency Room with appeared to be increased difficulty breathing associated cough, and worsening encephalopathy. She is at home, cared for by her son. She apparently was diagnosed with COVID earlier this month on 09/21. She is unable to give too many details of her history due to her aphasia and previous issues with her deficits related to her stroke. She was evaluated in the Emergency Room. Chest x-ray not felt to have acute cardiopulmonary process. Lactic acid was 2.3. ProBNP was 1208. CT head did show bilateral basal ganglia, old lacunar infarcts, nothing acute. Urinalysis, 0-5 white cells. Influenza antigen was negative. Sodium was elevated at 159. Creatinine 1.7. Coronavirus PCR testing was positive. Blood cultures collected at time of admission are sterile thus far. She was initiated on therapy with ceftriaxone. ALLERGIES: None known. CURRENT MEDICATIONS: Currently include polyethylene ____ docusate, calcitriol, amlodipine, metoprolol, atorvastatin, famotidine, ceftriaxone. PAST MEDICAL HISTORY: As described above, previous stroke with right-sided hemiplegia and aphasia, dysphagia, history of asthma, bilateral lower extremity venous stasis insufficiency. FAMILY HISTORY: Available in chart. REVIEW OF SYSTEMS: Not obtainable. PHYSICAL EXAMINATION: GENERAL: She appears chronically ill and undernourished. She is encephalopathic, moderate distress. VITAL SIGNS: Temperature 97.6, pulse 111, respirations 18, blood pressure 136/100. SKIN: Warm, dry. [facility] [address] [place] [address] CONSULTATION Name: ADRIANO MAZARIEGOS Room #: 459-P [facility] IN [facility].#: [id number] Admission: 09/27/21 Attend Phys: Sergio Alexander MD Discharge: Date of : 72 Report #: [id number] HEENT: Decreased range of motion about the cervical spine. She is maintained on 2 L per nasal cannula. LUNGS: Bilateral scattered coarse breath sounds. HEART: Distant, tachycardic, may have a soft systolic murmur. ABDOMEN: Slightly distended, mildly firm. No apparent peritoneal signs. GENITOURINARY AND RECTAL: Deferred. LABORATORY DATA: Most recent electrolytes, sodium 155, potassium 3.5, chloride 119, bicarbonate is 22, anion gap of 14, BUN and creatinine 47 and 1.5, estimated GFR 45. CBC: White count 9.6, H and H 11.6 and 36.3, platelets of 239. Most recent lactic acid 1.8. Liver functions otherwise unremarkable. Albumin of 32, total protein 7.8. ASSESSMENT AND PLAN: COVID-19 infection setting of a previous stroke, appears to be more encephalopathic than baseline is notable and has marked hypernatremia, it certainly could be a contributing factor as well. I think she is at significant risk for clinical worsening. We will start remdesivir, corticosteroids. At this point, she is requiring supplemental oxygen, although her chest x-ray is not clearly evident with infiltrates. Secondly, she is at risk for nosocomial-related complications. Certainly aspiration pneumonitis. Monitor expectantly. I think it is reasonable to continue empiric therapy with ceftriaxone. She is tenuous at this point. Continue supportive care. <ELECTRONICALLY SIGNED> By: Taye Kenyon MD 09/29/21 [id number] Taye Kenyno MD /nt
[2021-09-29 07:47] VITALS: BP 140/101
[2021-09-29 12:05] VITALS: BP 134/94
--- NOTE | 2021-09-29 15:15 | NUR ---
CM REVIWED CHART AND SPOKE WITH CARE TEAM. PT IS PROGRESSING TOWRD GOAL OF DISCHARGING HOME. PT IS ON 1L O2 THIS AFTERNOON. PT AND OT SAW PT AND LOOKS LIKE THEY DID SOME BED LEVEL ROM ACTIVITIES. HOSPITALIST INDICATED THAT PT MAY BE MEDICALLY STABLE FOR DC HOME TOMORROW. CM CALLED AND UPDATED PT'S SON CHOCO. HE WAS RECEPTIVE TO [facility] FOR POSSIBLE HH NURSING UPON DC LIAISON TOO REFERRAL INFO. CM INDICATED THAT CM WOULD FOLOW UP TOMORROW AND ASSIST WITH ARRANGEMENTS FOR DC HOME. PT MAY NEED [facility] ST[facility]CHER TRANSPORT. CM FOLLOWIGN REGARDING DC PLANNING.
[2021-09-29 16:38] LABS: HEMATOCRIT 37.7 % (37.0-47.0); HEMOGLOBIN 11.7 gm/dL (12.0-15.0); MCH 29.4 pg (26.0-34.0); MCHC 31.1 g/dL (28.0-37.0); MCV 94.6 fL (80.0-100.0); RBC 3.99 mil/uL (4.20-5.00); RDW 18.6 % (10.5-14.5)
[2021-09-29 19:15] VITALS: BP 119/88
--- NOTE | 2021-09-29 19:17 | NUR ---
1800 PT TRANSFERRED FROM ROOM 459 TO 353. ALL BELONGINGS WITH PT. REPORT GIVEN TO RACHEAL WILL. 4W RN WILL CALL FAMILY AND UPDATE THEM ON TRANSFER.
[2021-09-30] VITALS (8 sets, daily range): BP systolic 118–136; BP diastolic 78–95
[2021-09-30 06:27] LABS: ALBUMIN 2.7 g/dL (3.4-5.0); CALCIUM 8.5 mg/dL (8.5-10.1); CREATININE 1.4 mg/dL (0.6-1.0); TOTAL BILIRUBIN 0.3 mg/dL (0.2-1.0); TOTAL PROTEIN 6.9 g/dL (6.4-8.2)
[2021-09-30 06:40] LABS: POTASSIUM 2.9 mmol/L (3.5-5.1)
--- NOTE | 2021-09-30 06:43 | NUR ---
CANDELARIO FROM LAB CALLED WITH CRITICAL K+ 2.9. ALL PROTOCOLS AND APPROPRIATE PARTIES NOTIFIED.
--- NOTE | 2021-09-30 16:01 | NUR ---
DISCHARGE NOTE: SW reviewed chart and spoke with nursing and attending physician. Pt was transferred from 4W to 3W. Pt is medically stable for discharge home today with HH services. [facility] can accept pt on service. Discharge ppwk faxed. Notified HH liaison of pt's discharge. RODERICK spoke with pt's son, Glendy, via phone to notify of pt's discharge. Glendy is aware and in agreement with discharge plan. Stretcher van transportation [facility] Nursing notified. Contact info for HH placed in pt's discharge summary. No additional SW needs identified at this time. SW is available to assist should needs arise.
== END 2021-09-30 17:23 | disposition home health service (06) | DRG 177 ==
LOC: ER 13:01 → EROBS 15:29 → 4W 15:29 → 3W 09-29 16:55
PROVIDERS: Hospitalist; Nurse Practitioner; Specialist; ADMIT Internal Medicine; ATTEND Internal Medicine
PROC: XW033E5 Introduction of Remdesivir Anti-infective into Peripheral Vein, Percutaneous Approach, New Technology Group 5 (ICD-10-PCS; principal; 2021-09-28)
DX: U07.1 COVID-19 (principal); G93.41 Metabolic encephalopathy; E87.0 Hyperosmolality and hypernatremia; I69.351 Hemiplegia and hemiparesis following cerebral infarction affecting right dominant side; N17.9 Acute kidney failure, unspecified; I69.320 Aphasia following cerebral infarction; I10 Essential (primary) hypertension; I16.0 Hypertensive urgency
CPT/HCPCS: 10045; 10879